=== PATIENT | female | born 1970 | race Caucasian/White ===

== ENCOUNTER 2021-01-17 15:14 | Outpatient (CLI) | payer BC, SELFPAY ==
--- NOTE | 2021-01-17 15:00 | DI.RAD_ITS ---
Exam(s) XR KNEE RT 4V AP,LAT,KEVEN,PAT EXAM: XR KNEE RT 4V AP,LAT,KEVEN,PAT CLINICAL HISTORY: RIGHT KNEE PAIN. TECHNIQUE: 2D digital imaging was performed. COMPARISON: No exams were available for comparison FINDINGS: No evidence of acute fracture nor obvious joint effusion. There is evidence of prior ACL surgery. M ild degenerative changes noted in the medial compartment. No osteochondral defects evident. Bone de nsity normal. No significant osseous lesions. IMPRESSION: DATA REPOSITORY: RADIATION DOSE DELIVERED:
== END 2021-01-17 15:15 | disposition home or self-care (01) ==
LOC: DIORS 15:15
PROVIDERS: Visit Provider Student in an Organized Health Care Education/Training Program
DX: M25.561 Pain in right knee (principal); M17.11 Unilateral primary osteoarthritis, right knee; S89.81XA Other specified injuries of right lower leg, initial encounter; X58.XXXA Exposure to other specified factors, initial encounter; Z98.890 Other specified postprocedural states
CPT/HCPCS: 73564

== ENCOUNTER 2021-02-07 01:00 | Outpatient (CLI) | payer BC, SELFPAY ==
--- NOTE | 2021-02-07 08:13 | DI.MRI_ITS ---
Exam(s) MR LOWER JOINT RT WO EXAM: MR LOWER JOINT RT WO CLINICAL HISTORY: RIGHT KNEE PAIN,? MPFL RUTPURE, MALTRACKING RT PATELLA, M22.8X1 TECHNIQUE: Multiplanar multisequence MRI of the knee was performed. COMPARISON: CR XR KNEE RT 4V AP,LAT,KEVEN,PAT from 01/17/2021 CR XR KNEE RT 4V AP,LAT,KEVEN,PAT from 01/17/2021 FINDINGS: EFFUSION: Minimal amount of increased joint fluid. There is no prominent joint effusion. There is n o Tarango cyst in the popliteal fossa. MARROW:There is no evidence of fracture, bone contusion, nor osteochondral defects.. There are no si gnificant osseous lesions. PATELLOFEMORAL COMPARTMENT: The quadriceps tendon is intact. The patellar ligament is intact. There is no significant thinning of the retropatellar cartilage. No evidence of fissure nor signific ant chondral defect. No osteochondral defect at this level.There is no intraosseous signal to sugges t recent patellar dislocation. There are no patellar retinacular tears. CRUCIATE LIGAMENTS: There has been previous ACL surgery. Mild irregularity of the ACL graft is noted but there does not appear to be a high-grade graft tear.The posterior cruciate ligament is intact. MEDIAL COMPARTMENT/MEDIAL MENISCUS: There are no tears of the medial meniscus evident.. There are no chondral defects, osteochondral defects, nor prominent subarticular marrow edema. Small osteophytes are noted on the inner aspect of the medial femoral condyle. MEDIAL COLLATERAL LIGAMENT: Mild sprain signal. Otherwise intact. LATERAL COMPARTMENT/LATERAL MENISCUS: There is no evidence of lateral meniscal tear.No obvious chondr al defects although there is some mild subarticular edema on the inner aspect of the lateral femoral condyle adjacent to the intercondylar notch.No osteophytes seen in the lateral femoral condyle. ILIOTIBIAL BAND: Intact LATERAL COLLATERAL LIGAMENT COMPLEX: The fibular collateral ligament is intact. The biceps femoris t endon is intact.Popliteus muscle and tendon are intact. IMPRESSION: 1. There is evidence of previous ACL surgery. ACL graft appears slightly irregular but there is no e vidence of obvious high-grade tear of the graft. Probable partial tearing. 2. PCL is intact. LCL complex is intact and there is no prominent tear of the MCL appear 3. There are no obvious meniscal tears. 4. No prominent joint effusion. There is no Tarango cyst in the popliteal fossa. DATA REPOSITORY:
== END 2021-02-07 01:20 ==
PROVIDERS: Visit Provider Student in an Organized Health Care Education/Training Program
DX: M25.561 Pain in right knee (principal)
CPT/HCPCS: 73721

== ENCOUNTER 2021-06-10 03:00 | Outpatient (CLI) | payer BC, SELFPAY ==
[2021-06-10 13:33] LABS: Abs Immature Grans 0.01 10^3/uL (0.0-0.06); Absolute Basophil Count 0.07 10^3/uL (0.0-0.2); Absolute Eosinophil Count 0.25 10^3/uL (0.0-0.7); Absolute Monocyte Count 0.52 10^3/uL (0.1-0.8); Absolute Neutrophil Count 3.95 10^3/uL (1.2-6.7); Basophils % 1.1; HCT 37.4 % (36.0-46.0); HGB 11.4 g/dL (11.2-15.7); Immature Grans % 0.2; Lymphocytes % 23.8; MCH 25.4 pg (27.0-33.0); MCHC 30.5 % (32.0-36.0); MCV 83.5 fL (80-95); MPV 12.6 fL (8.0-11.0); Monocytes % 8.3; Neutrophils % 62.6; Nucleated RBC 0 %; Platelet Count 222 10^3/uL (130-400); RBC 4.48 10^6/uL (3.93-5.22); RDW 15.6 % (11.7-14.6); RDW-SD 48.2 fL
[2021-06-10 14:55] LABS: Iron 52 ug/dL (50-170); Total Iron Binding Capacity 380 ug/dL (250-450)
[2021-06-10 15:01] LABS: Ferritin 8 ng/mL (8-252)
== END 2021-06-10 03:01 | disposition home or self-care (01) ==
PROVIDERS: Visit Provider Internal Medicine Hematology & Oncology
DX: D50.9 Iron deficiency anemia, unspecified (principal); N63.10 Unspecified lump in the right breast, unspecified quadrant
CPT/HCPCS: 36415; 82728; 83540; 83550; 85025

== ENCOUNTER 2021-07-16 16:20 | Outpatient (REF) | payer BC, SELFPAY ==
[2021-07-18 11:59] LABS: COVID-19 RT-PCR UVMMC Result Negative (Negative)
== END 2021-07-16 16:21 | disposition home or self-care (01) ==
LOC: LBN 16:20
PROVIDERS: Visit Provider Physician Assistant Medical
DX: J45.990 Exercise induced bronchospasm (principal); Z20.822 Contact with and (suspected) exposure to COVID-19
CPT/HCPCS: U0003

== ENCOUNTER 2022-07-25 13:15 | Outpatient (CLI) | payer BC, SELFPAY ==
[2022-07-25 13:29] LABS: Iron 50 ug/dL (50-170); Total Iron Binding Capacity 294 ug/dL (250-450); Transferrin Sat 17 % (15-50)
[2022-07-25 13:42] LABS: Ferritin 40 ng/mL (8-252)
== END 2022-07-25 13:16 | disposition home or self-care (01) ==
LOC: LBO 13:16
PROVIDERS: Visit Provider Internal Medicine Hematology & Oncology
DX: D50.9 Iron deficiency anemia, unspecified (principal); N63.10 Unspecified lump in the right breast, unspecified quadrant
CPT/HCPCS: 36415; 82728; 83540; 83550

== ENCOUNTER 2022-11-14 17:24 | Outpatient (REF) | payer BC, SELFPAY ==
[2022-11-14 19:06] LABS: Abs Immature Grans 0.02 10^3/uL (0.0-0.06); Absolute Basophil Count 0.05 10^3/uL (0.0-0.2); Absolute Eosinophil Count 0.26 10^3/uL (0.0-0.7); Absolute Lymphocyte Count 1.75 10^3/uL (1.2-3.4); Absolute Monocyte Count 0.49 10^3/uL (0.1-0.8); Absolute Neutrophil Count 4.14 10^3/uL (1.2-6.7); Basophils % 0.7; Eosinophils % 3.9; HCT 34.7 % (36.0-46.0); HGB 10.9 g/dL (11.2-15.7); Immature Grans % 0.3; Lymphocytes % 26.1; MCH 26.2 pg (27.0-33.0); MCHC 31.4 % (32.0-36.0); MCV 83 fL (80-95); MPV 12.6 fL (8.0-11.0); Monocytes % 7.3; Neutrophils % 61.7; Platelet Count 238 10^3/uL (130-400); RBC 4.16 10^6/uL (3.93-5.22); RDW-SD 39.8 fL; WBC 6.71 10^3/uL (4.4-10.8)
[2022-11-14 19:40] LABS: Hemoglobin A1C 5.6 % (<5.7)
[2022-11-14 19:44] LABS: ALT 23 U/L (14-59); AST 23 U/L (15-37); Albumin 3.8 g/dL (3.4-5.0); Alkaline Phosphatase 88 U/L (46-116); Anion Gap 9.7 mmol/L (3-11); BUN 13 mg/dL (7-18); Bilirubin, Total 0.6 mg/dL (0.2-1.0); CO2 26.3 mmol/L (21.0-32.0); CREATININE 0.8 mg/dL (0.55-1.02); Calcium 8.9 mg/dL (8.5-10.1); Calculated LDL 169 mg/dL (<100); Chloride 102 mmol/L (98-107); Cholesterol 258 mg/dL (<200); Estimated GFR 89.15 (mL/min/1.73m2); Glucose 112 mg/dL (74-106); HDL Cholesterol 71 mg/dL (40-60); Potassium 3.6 mmol/L (3.5-5.1); Sodium 138 mmol/L (136-145); TSH (W/Ref FT4) 1.39 uIU/mL (0.36-3.74); Total Protein 7.4 g/dL (6.4-8.2); Triglyceride 93 mg/dL (<150)
[2022-11-14 19:46] LABS: Iron 23 ug/dL (50-170); Total Iron Binding Capacity 336 ug/dL (250-450); Transferrin Sat 7 % (15-50)
[2022-11-14 19:58] LABS: Vitamin D 25 Total 20.9 ng/mL (30-100)
== END 2022-11-14 17:25 | disposition home or self-care (01) ==
LOC: NCHCN 17:24
PROVIDERS: PCP Nurse Practitioner Family; Visit Provider Nurse Practitioner Family
DX: R63.5 Abnormal weight gain (principal)
CPT/HCPCS: 80053; 80061; 82306; 83036; 83540; 83550; 84443; 85025

== ENCOUNTER 2023-02-27 18:54 | Outpatient (REF) | payer BC, SELFPAY ==
[2023-02-27 16:13] LABS: Iron 61 ug/dL (50-170)
[2023-02-27 16:16] LABS: Abs Immature Grans 0.01 10^3/uL (0.0-0.06); Absolute Basophil Count 0.07 10^3/uL (0.0-0.2); Absolute Eosinophil Count 0.22 10^3/uL (0.0-0.7); Absolute Lymphocyte Count 1.38 10^3/uL (1.2-3.4); Absolute Monocyte Count 0.46 10^3/uL (0.1-0.8); Absolute Neutrophil Count 3.06 10^3/uL (1.2-6.7); Basophils % 1.3; Eosinophils % 4.2; HCT 35.7 % (36.0-46.0); HGB 11.3 g/dL (11.2-15.7); Immature Grans % 0.2; Lymphocytes % 26.5; MCH 25.1 pg (27.0-33.0); MCHC 31.7 % (32.0-36.0); MCV 79 fL (80-95); MPV 13.3 fL (8.0-11.0); Monocytes % 8.8; Platelet Count 196 10^3/uL (130-400); RBC 4.51 10^6/uL (3.93-5.22); RDW 16.5 % (11.7-14.6); RDW-SD 46.5 fL
[2023-02-27 16:33] LABS: Anion Gap 9.8 mmol/L (3-11); BUN 12 mg/dL (7-18); CO2 25.2 mmol/L (21.0-32.0); CREATININE 0.8 mg/dL (0.55-1.02); Calcium 9.1 mg/dL (8.5-10.1); Calculated LDL 160 mg/dL (<100); Chloride 107 mmol/L (98-107); Cholesterol 244 mg/dL (<200); Estimated GFR 89.15 (mL/min/1.73m2); Glucose 102 mg/dL (74-106); HDL Cholesterol 60 mg/dL (40-60); Potassium 4.1 mmol/L (3.5-5.1); Sodium 142 mmol/L (136-145); Triglyceride 124 mg/dL (<150)
[2023-02-27 16:36] LABS: Vitamin D 25 Total 39.5 ng/mL (30-100)
[2023-02-27 16:38] LABS: RBC Morphology Normal
[2023-02-27 16:39] LABS: Diff Comment PLT Morph Reviewed
[2023-02-27 17:14] LABS: Hemoglobin A1C 5.7 % (<5.7)
== END 2023-02-27 18:55 | disposition home or self-care (01) ==
LOC: NCHCN 18:54
PROVIDERS: PCP Nurse Practitioner Family; Visit Provider Physician Assistant
DX: D50.9 Iron deficiency anemia, unspecified (principal); E55.9 Vitamin D deficiency, unspecified; E78.5 Hyperlipidemia, unspecified; R73.9 Hyperglycemia, unspecified
CPT/HCPCS: 80048; 80061; 82306; 83036; 83540; 85025

== ENCOUNTER → 2023-06-20 04:29 | Outpatient (CLI) | payer BC, SELFPAY ==
--- NOTE | 2023-06-20 | DI.MAMMO_ITS ---
Exam(s) MAMMO SCREENING EXAM: MAMMO SCREENING CLINICAL HISTORY: Z12.31 Encounterfor screening mammogram for malignant neoplasm of breast TECHNIQUE: Mammograms were interpreted according to the usual protocol including computer analysis w [employer] CAD system, tomosynthesis and C-view imaging. COMPARISON: 2017 and 2019 mammogram and ultrasound from [facility] in [facility] FINDINGS: The breasts are composed of heterogeneously dense fibroglandular densities, Breast Density category C . No suspicious masses or suspicious microcalcifications are seen. No skin thickening or abnormal axillary lymph nodes are seen. Previously noted bilateral breast cysts are no longer visible. IMPRESSION: BI-RADS Category 1, Negative mammogram. Yearly screening mammography is recommended. Breast Density Category C, heterogeneously Dense. The mammogram demonstrates the patient's breast tissue is dense. Dense breast tissue is very common a nd is not abnormal but dense breast tissue can make it harder to find cancer on a mammogram. Also, de nse breast tissue may increase breast cancer risk. This information about the result of the mammogram report was provided to the patient to raise their awareness. Use this report when you speak with the patient about their risks for breast cancer, which includes their family history. At that time, you may recommend additional screening tests (Ultrasound or MRI) as they might be useful based on their r isk. A negative radiographic report should not delay biopsy if a dominant or clinically suspicious mass is present. Up to ten percent of cancers are not identified on mammography. A negative report may reinforce clinical impression. Adenosis and dense breasts may obscure an underlying neoplasm. False positive reports average 6 to 10%.
== END ==
PROVIDERS: PCP Nurse Practitioner Family; Visit Provider Physician Assistant
DX: Z12.31 Encounter for screening mammogram for malignant neoplasm of breast (principal); R92.30 Dense breasts, unspecified
CPT/HCPCS: 77063; 77067

== ENCOUNTER 2023-07-19 15:38 | Outpatient (REF) | payer BC, SELFPAY ==
[2023-07-19 15:10] LABS: Abs Immature Grans 0.03 10^3/uL (0.0-0.06); Absolute Basophil Count 0.07 10^3/uL (0.0-0.2); Absolute Eosinophil Count 0.13 10^3/uL (0.0-0.7); Absolute Lymphocyte Count 1.72 10^3/uL (1.2-3.4); Absolute Neutrophil Count 6.11 10^3/uL (1.2-6.7); Basophils % 0.8 %; Eosinophils % 1.5 %; HCT 32.6 % (36.0-46.0); HGB 9.8 g/dL (11.2-15.7); Immature Grans % 0.4 %; Lymphocytes % 20.1 %; MCH 23.8 pg (27.0-33.0); MCHC 30.1 % (32.0-36.0); MCV 79 fL (80-95); MPV 12.6 fL (8.0-11.0); Monocytes % 5.8 %; Neutrophils % 71.4 %; Platelet Count 281 10^3/uL (130-400); RBC 4.12 10^6/uL (3.93-5.22); RDW 14.9 % (11.7-14.6); RDW-SD 42.9 fL; WBC 8.56 10^3/uL (4.4-10.8)
[2023-07-19 15:30] LABS: Iron 15 ug/dL (50-170); Total Iron Binding Capacity 393 ug/dL (250-450); Transferrin Sat 4 % (15-50)
[2023-07-19 15:31] LABS: Hemoglobin A1C 5.9 % (<5.7)
[2023-07-19 15:54] LABS: Vitamin D 25 Total 25.5 ng/mL (30-100)
[2023-07-19 15:55] LABS: ALT 21 U/L (14-59); AST 21 U/L (15-37); Albumin 3.7 g/dL (3.4-5.0); Alkaline Phosphatase 103 U/L (46-116); Anion Gap 9.4 mmol/L (3-11); BUN 10 mg/dL (7-18); Bilirubin, Total 0.6 mg/dL (0.2-1.0); CO2 27.6 mmol/L (21.0-32.0); CREATININE 0.9 mg/dL (0.55-1.02); Calcium 8.9 mg/dL (8.5-10.1); Chloride 106 mmol/L (98-107); FREE T4 0.86 ng/dL (0.76-1.46); Ferritin 7 ng/mL (8-252); Folate 9.7 ng/mL (8.6-20.0); Glucose 124 mg/dL (74-106); Potassium 3.9 mmol/L (3.5-5.1); Sodium 143 mmol/L (136-145); TSH 1.95 uIU/Ml (0.36-3.74); Total Protein 7.7 g/dL (6.4-8.2); Vitamin B12 213 pg/mL (193-986)
== END 2023-07-19 15:39 | disposition home or self-care (01) ==
LOC: NCHCN 15:38
PROVIDERS: PCP Nurse Practitioner Family; Visit Provider Nurse Practitioner Family
DX: R63.5 Abnormal weight gain (principal)
CPT/HCPCS: 80053; 82306; 82607; 82728; 82746; 83036; 83540; 83550; 84439; 84443; 85025

== ENCOUNTER 2023-08-10 10:13 | Emergency (ER) | payer BC, SELFPAY ==
--- NOTE | 2023-08-10 10:15 | RT.EKG_ITS ---
APPROVED REPORT Exam: Resting ECG Reason for Exam: feelinf faint Patient Location: E HR:69 bpm ECG Measurements Heart Rate 69 AXIS IL 150 P 18 QRSd 79 QRS 77 QT 379 T 68 QTc 408 Conclusion Sinus rhythm.. 69 no stemi
[2023-08-10 10:23] VITALS: BP 112/75; PULSE 76; RESP 16; TEMP 37; O2SAT 98
--- NOTE | 2023-08-10 10:45 | DI.CT_ITS ---
Exam(s) CT HEAD WO EXAM: CT HEAD WO CLINICAL HISTORY: dizzy. TECHNIQUE: Imaging Protocol: Axial computed tomography images with coronal and sagittal reformatted images were created and reviewed COMPARISON: No exams were available for comparison FINDINGS: Ventricles and Extra axial spaces: Normal in size and morphology for the patient's age. Hemorrhage: None. Cerebral parenchyma: No evidence of acute infarct or mass. Midline shift: None. Brainstem/Cerebellum: Normal. Calvarium: Normal. Visualized Paranasal sinuses:Mucous retention cysts maxillary sinuses. Mastoids: Clear. Soft Tissues: Unremarkable. ORBITS: Unremarkable. PITUITARY: Not enlarged. IMPRESSION: No acute intracranial process. RADIATION DOSE DELIVERED: 734.63mGy.cm Total DLP DATA REPOSITORY: All CT scans at this facility are submitted to the National Radiology Data Registry (NRDR) Dose Index Registry (DIR) with the [employer] (A[employer]). RADIATION OPTIMIZATION: All CT scans at this facility use at least one of these dose optimization te chniques: automated exposure control; mA and/or kV adjustment per patient size (includes targeted exa ms where dose is matched to clinical indication); or iterative reconstruction.
[2023-08-10] MEDS: Meclizine 25 MG TAB PO (11:11)
[2023-08-10 11:18] LABS: Abs Immature Grans 0.02 10^3/uL (0.0-0.06); Absolute Basophil Count 0.05 10^3/uL (0.0-0.2); Absolute Lymphocyte Count 1.39 10^3/uL (1.2-3.4); Absolute Monocyte Count 0.41 10^3/uL (0.1-0.8); Absolute Neutrophil Count 2.68 10^3/uL (1.2-6.7); Basophils % 1.1 %; Eosinophils % 4.2 %; HCT 35.6 % (36.0-46.0); HGB 10.7 g/dL (11.2-15.7); Immature Grans % 0.4 %; Lymphocytes % 29.3 %; MCH 23.6 pg (27.0-33.0); MCHC 30.1 % (32.0-36.0); MCV 78 fL (80-95); MPV 12.5 fL (8.0-11.0); Monocytes % 8.6 %; Neutrophils % 56.4 %; Platelet Count 282 10^3/uL (130-400); RBC 4.54 10^6/uL (3.93-5.22); RDW 15.9 % (11.7-14.6); RDW-SD 45.5 fL; WBC 4.75 10^3/uL (4.4-10.8)
[2023-08-10] MEDS: Normal Saline 1,000 ML 1000 ML IV (11:28)
[2023-08-10 11:31] VITALS: BP 131/66; PULSE 65; RESP 16; O2SAT 100
[2023-08-10 11:31] LABS: Bilirubin Negative (Negative); Blood Trace-intact (Negative); Clarity Clear (Clear); Glucose Negative (Negative); Ketones Negative (Negative); Leukocyte Esterase Negative (Negative); Nitrite Negative (Negative); Specific Gravity 1.015 (1.005-1.025); Urobilinogen 0.2 mg/dL (Up to 0.2); pH 6.5 (5-8)
--- NOTE | 2023-08-10 11:33 | ED.GENADUL_ITS ---
Discharge Plan Disposition Patient Disposition: Home Condition: Stable Discharge Details Clinical Impression: Dizziness Primary Care Provider: Unknown,Unknown ED Provider: Bebo Rizzo Home Meds and New Rx's Prescriptions: No Action No Known Home Meds Discharge Instructions Instructions: Dizziness (ED) Additional Instructions: Lab work and imaging today is unremarkable for significant emergent process. Your blood counts are improved from prior. Please continue to drink lots of fluids and stay hydrated. Return with worsening symptoms or follow-up with your PCP. Discharge Data Discharge Date/Time-TO BE ENTERED AT DEPARTURE: 08/10/23 13:22 HPI General Date/Time Provider Initiated Documentation: 08/10/23 10:36 . Limitations to Documentation: no limitations . Information obtained by: patient and family . HPI Narrative: 52-year-old female with out significant past medical history presents for evaluation of dizziness and lightheadedness. 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 She reports that she slept in and was having a lazy morning. She reports feeling more tired than usual. She reports having some nausea with the new medication. She reports that she just started feeling very dizzy and unsteady. She denies any chest pain or headache. She reports that the dizziness is worse when she is up walking around. She reports eating breakfast this morning. Denies any drugs or alcohol use. She states that this is never happened before. She has never had dizzy symptoms before. She denies any headache associated with her dizziness. Related Data Home Medications Medication Instructions Recorded Confirmed Unknown [No Known Home Meds] 01/17/21 08/10/23 Allergies Allergy/AdvReac Type Severity Reaction Status Date / Time No Known Allergies Allergy Unverified 01/17/21 15:10 General Stated Complaint: Dizzy/Sync ANA LILIA: 3 Exam Narrative Exam Narrative: Review of Systems: All systems reviewed & are unremarkable except as noted in HPI and below Well-developed, no acute distress NCAT PERRL, normal conjunctiva, no nystagmus RRR, no murmur Unlabored respiratory effort, clear bilaterally Nondistended abdomen, nontender Extremities w/o deformity, no cyanosis, no edema No rashes or lesions. no focal neurologic deficits Good strength and tone throughout, sensation intact, no past-pointing, normal [id number], negative Romberg, no appreciable ataxia Appropriate mood and affect Course Vital Signs Vital signs: Vital Signs Temperature 37.0 C 08/10/23 10:23 Pulse 76 08/10/23 10:23 Respiratory Rate 16 08/10/23 10:23 Blood Pressure 112/75 08/10/23 10:23 Pulse Oximetry 98 08/10/23 10:23 Temperature 37.0 C 08/10/23 10:23 Temperature Source Tympanic 08/10/23 10:23 Pulse 65 08/10/23 11:31 Respiratory Rate 16 08/10/23 11:31 Respiratory Effort Normal 08/10/23 11:31 Respiratory Depth Normal 08/10/23 11:31 Respiratory Pattern Normal 08/10/23 11:31 Blood Pressure 131/66 08/10/23 11:31 Blood Pressure Position Sitting 08/10/23 10:23 Pulse Oximetry 100 08/10/23 11:31 Oxygen Delivery Method Room Air 08/10/23 10:23 Oxygen Flow Rate 0 08/10/23 10:23 Pain Level 0 08/10/23 11:31 Lab/Test Results Lab/Test Results: Laboratory Tests Range/Units 08/10/23 08/10/23 11:10 11:12 WBC (4.4-10.8) 10^3/uL 4.75 RBC (3.93-5.22) 10^6/uL 4.54 Hgb (11.2-15.7) g/dL 10.7 L Hct (36.0-46.0) % 35.6 L MCV (80-95) fL 78 L MCH (27.0-33.0) pg 23.6 L MCHC (32.0-36.0) % 30.1 L RDW (11.7-14.6) % 15.9 H Plt Count (130-400) 10^3/uL 282 MPV (8.0-11.0) fL 12.5 H Immature Gran % % 0.4 Neutrophils % % 56.4 Lymphocytes % % 29.3 Monocytes % % 8.6 Eosinophils % % 4.2 Basophils % % 1.1 Nucleated RBC % (0.0-0.3) % 0.0 Absolute Neutrophils (1.2-6.7) 10^3/uL 2.68 Absolute Lymphocytes (1.2-3.4) 10^3/uL 1.39 Absolute Monocytes (0.1-0.8) 10^3/uL 0.41 Absolute Eosinophils (0.0-0.7) 10^3/uL 0.20 Absolute Basophils (0.0-0.2) 10^3/uL 0.05 Urine Color (Yellow) Yellow Urine Clarity (Clear) Clear Urine pH (5-8) 6.5 Ur Specific [place] (1.005-1.025) 1.015 Urine Protein (Neg-Trace) mg/dL Negative Urine Ketones (Negative) mg/dL Negative Urine Blood (Negative) Trace-intact H Urine Nitrite (Negative) Negative Urine Bilirubin (Negative) Negative Urine Urobilinogen (Up to 0.2) mg/dL 0.2 Ur Leukocyte Esterase (Negative) Negative Urine Glucose (Negative) mg/dL Negative Medical Decision Making Emergent evaluation of dizziness. Initial differential includes dehydration, electrolyte derangement, vertigo, less likely intracranial process. Lab work reviewed. The patient does have mild anemia, some i improvement from prior. No electrolyte derangement. No urinary tract infection. Head CT was obtained to evaluate for concerning new dizziness. This is unremarkable for stroke or mass. She received IV fluids and meclizine which resulted in the resolution of her symptoms. I suspect that she perhaps has some mild dehydration causing the symptoms or some mild vertigo. At this time no additional emergent workup is indicated. Plan for discharge home. Return precautions advised. Medical Records Medical records reviewed: Yes I reviewed the patient's medical records. Lab Data Lab results reviewed: Yes I reviewed the patient's lab results. Quality:SDOH Health Related Social Needs: No Data to Display PFSH All Active Problems (Updated 08/10/23 @ 12:37 by Bebo Rizzo MD) Dizziness (Acute) Maltracking of right patella (Acute) Medical History Bleeding external hemorrhoids (11/13/12) pt instructed to contact pcp for further evaluation Anemia during pregnancies Gastrointestinal symptom colonoscopy in 2010 ? gluten concern ACL repair in 2000 and 2012 Surgical History Repair, ACL 2000, 2012 Social History Smoking/Tobacco Use Status: Never Smoking risk assessment performed?: Yes Alcohol Intake: former Substance use type: does not use
[2023-08-10 11:44] LABS: ALT 22 U/L (14-59); AST 16 U/L (15-37); Albumin 3.9 g/dL (3.4-5.0); Alkaline Phosphatase 116 U/L (46-116); BUN 11 mg/dL (7-18); Bilirubin, Total 0.7 mg/dL (0.2-1.0); CREATININE 0.9 mg/dL (0.55-1.02); Calcium 8.9 mg/dL (8.5-10.1); Chloride 105 mmol/L (98-107); Glucose 87 mg/dL (74-106); Magnesium 2.1 mg/dL (1.8-2.4); Potassium 4.2 mmol/L (3.5-5.1); Sodium 142 mmol/L (136-145); TSH 2.36 uIU/Ml (0.36-3.74); Total Protein 8.2 g/dL (6.4-8.2); Troponin I < 50 ng/L (< or =60)
[2023-08-10 11:51] LABS: Bacteria Rare HPF (Negative); Epithelial Cells Rare HPF (Negative); RBC 0-2 HPF (0-2); WBC 0-2 HPF (0-5)
[2023-08-10 11:52] LABS: C & S Indicated? No; Casts Negative LPF (Negative); Crystals Rare Calcium Oxalate HPF (Negative); Mucus Negative (Negative)
[2023-08-10 13:08] VITALS: BP 132/74; PULSE 78; RESP 16; TEMP 36.7; O2SAT 98
== END 2023-08-10 13:22 | disposition home or self-care (01) ==
PROVIDERS: Emergency Provider Emergency Medicine
DX: R42 Dizziness and giddiness (principal); R11.0 Nausea; R53.83 Other fatigue; D64.9 Anemia, unspecified
CPT/HCPCS: 80053; 93005; 99285; 70450; 81003; 81015; 83735; 84443; 84484; 85025; 93010; 99284

== ENCOUNTER 2024-01-28 18:20 | Emergency (ER) | payer BC, SELFPAY ==
[2024-01-28 18:23] VITALS: BP 141/82; PULSE 78; RESP 18; TEMP 36.7; O2SAT 99
[2024-01-28 18:43] VITALS: BP 142/82; PULSE 78; RESP 18; TEMP 36.7; O2SAT 99
[2024-01-28] MEDS: Ketorolac 30 MG/ML VIAL 10 MG IVP (19:05)
[2024-01-28] MEDS: diphenhydrAMINE 50 MG/ML VIAL 25 MG IVP (19:06)
[2024-01-28] MEDS: MAGNESIUM SULFATE 2 GM/50 ML BAG IVINF (19:07)
[2024-01-28] MEDS: Prochlorperazine 10 MG/2 ML VIAL 5 MG IVP (19:07)
[2024-01-28 21:39] VITALS: BP 102/53; PULSE 73; RESP 18; TEMP 36.5; O2SAT 95
--- NOTE | 2024-01-28 21:42 | ED.GENADUL_ITS ---
Discharge Plan Disposition Patient Disposition: Home Condition: Stable Discharge Details Clinical Impression: Headache Primary Care Provider: Ebony Dalal ED Provider: Bebo Rizzo Home Meds and New Rx's Prescriptions: No Action No Known Home Meds Discharge Instructions Instructions: Headache, Adult ED Additional Instructions: Glad that your headache symptoms have improved. Continue to drink increased amounts of water over the next few days. You can take 1000 mg of Tylenol every 4-6 hours or 600 mg of Motrin every 6 hours. Do not take these medications more than 3 times per week. If you notice that you have persistent headache or are needing more medications, please follow-up with your PCP. HPI General Date/Time Provider Initiated Documentation: 01/28/24 18:49 . Limitations to Documentation: no limitations . Information obtained by: patient . HPI Narrative: 53-year-old female without significant past medical history presents for evaluation of headache. The patient reports that the headache started 2 days ago after visiting a spa. She states that she did not have any massage treatment but did steam and dry sauna. She states that the headache started on the way home in the car. Not acute onset, not severe. Took some medication and felt better that evening and then the next day did not feel terrible. This morning woke up with more severe headache nausea but no vomiting. Sensitivity to light and sound. The patient denies any visual change, weakness or speech change. Related Data Home Medications ?Medication ?Instructions ?Recorded ?Confirmed Unknown [No Known Home Meds] 01/17/21 01/28/24 Allergies Allergy/AdvReac Type Severity Reaction Status Date / Time No Known Allergies Allergy Unverified 01/28/24 18:26 General Stated Complaint: Headache ANA LILIA: 2 Exam Narrative Exam Narrative: Review of Systems: All systems reviewed & are unremarkable except as noted in HPI and below Well-developed, no acute distress NCAT PERRL, normal conjunctiva no nystagmus Full range of motion of the neck without any stiffness or meningeal signs RRR Unlabored respiratory effort clear bilaterally Nondistended abdomen soft nontender no focal neurologic deficits good strength throughout Appropriate mood and affect Course Vital Signs Vital signs: Vital Signs Temperature 36.7 C 01/28/24 18:23 Pulse 78 01/28/24 18:23 Respiratory Rate 18 01/28/24 18:23 Blood Pressure 141/82 H 01/28/24 18:23 Pulse Oximetry 99 01/28/24 18:23 Temperature 36.5 C 01/28/24 21:39 Temperature Source Oral 01/28/24 18:43 Pulse 73 01/28/24 21:39 Respiratory Rate 18 01/28/24 21:39 Respiratory Effort Normal, Non-Labored 01/28/24 18:36 Blood Pressure 102/53 L 01/28/24 21:39 Blood Pressure Position Sitting 01/28/24 18:43 Pulse Oximetry 95 01/28/24 21:39 Oxygen Delivery Method Room Air 01/28/24 18:43 Oxygen Flow Rate 0 01/28/24 18:23 Pain Level 0 01/28/24 21:39 Medical Decision Making Emergent evaluation of headache. Headache was not acute onset, associated with fever or neurologic deficit. I have a low suspicion for an acute intracranial process or infectious etiology causing her symptoms. She has a normal neurologic exam at this time. She has not taken a significant amount of medication. Took 2 g of Tylenol yesterday and 1 dose of Motrin today. She states that after leaving the spot she did increase her water intake because she thought she might be dehydrated. No clinical signs of dehydration on exam. An IV was placed and medication was given to treat her headache. On reevaluation the patient reports complete resolution of her symptoms. Her neuroexam remained unremarkable and nonfocal. She was discharged in good condition. Strict return precautions advised. If headache persists or she develops ongoing issues she should follow-up with her PCP. Quality:SDOH Health Related Social Needs: No Data to Display PFSH All Active Problems Headache (Acute) Maltracking of right patella (Acute) Medical History Bleeding external hemorrhoids (11/13/12) pt instructed to contact pcp for further evaluation Anemia during pregnancies Gastrointestinal symptom colonoscopy in 2010 ? gluten concern ACL repair in 2000 and 2012 Surgical History Repair, ACL 2000, 2012 Social History Smoking/Tobacco Use Status: Never Smoking risk assessment performed?: Yes Alcohol Intake: former Substance use type: does not use Details: patient state she rarely drinks PAWSS Have you Been Recently Intoxicated or Drunk Within the Last 30 days?: No Have you Ever Experienced Previous Episodes of Alcohol Withdrawal?: No Have you ever Experienced Withdrawal Seizures?: No Have you ever Experienced Delirium Tremens(DT)s?: No Have you ever undergone Alcohol Rehabilitation Treatment (i.e, inpt ot outpatient treatment programs)?: No Have you ever Experienced Blackouts?: No Have you ever Combined Alcohol with other Downers within the last 90 days?: No Have you ever Combined Alcohol with any other Substance of Abuse during the last 90 days?: No Positive Blood Alcohol level on Presentation? [PCS.BAL]: No Evidence of Increased Autonomic Activity (i.e. HR>120, tremor, sweating, agitation, nausea)?: No Result: 0
== END 2024-01-28 21:41 | disposition home or self-care (01) ==
PROVIDERS: Emergency Provider Emergency Medicine; PCP Nurse Practitioner Family
DX: R51.9 Headache, unspecified (principal); R11.0 Nausea
CPT/HCPCS: 96365; 96366; 96375; 99284; 99283; J0780; J1200; J1885; J3475

== ENCOUNTER 2024-12-22 20:42 | Outpatient (REF) | payer OTHER, SELFPAY ==
[2024-12-22 18:06] LABS: HCT 30.1 % (36.0-46.0); HGB 8.5 g/dL (11.2-15.7); MCH 18.7 pg (27.0-33.0); MCHC 28.2 % (32.0-36.0); MCV 66 fL (80-95); Platelet Count 362 10^3/uL (130-400); RBC 4.55 10^6/uL (3.93-5.22); RDW 19.8 % (11.7-14.6); RDW-SD 45.2 fL; WBC 5.85 10^3/uL (4.4-10.8)
[2024-12-22 18:07] LABS: Iron 18 ug/dL (50-170); Total Iron Binding Capacity 458 ug/dL (250-450); Transferrin Sat 4 % (15-50)
[2024-12-22 18:21] LABS: ALT 21 U/L (14-59); AST 20 U/L (15-37); Albumin 3.9 g/dL (3.4-5.0); Alkaline Phosphatase 104 U/L (46-116); Anion Gap 10.7 mmol/L (3-11); BUN 6 mg/dL (7-18); Bilirubin, Total 0.6 mg/dL (0.2-1.0); CO2 26.3 mmol/L (21.0-32.0); Calculated LDL 128 mg/dL (<100); Chloride 104 mmol/L (98-107); Cholesterol 217 mg/dL (<200); Glucose 84 mg/dL (74-106); HDL Cholesterol 61 mg/dL (>or=50); Potassium 4.4 mmol/L (3.5-5.1); Sodium 141 mmol/L (136-145); Total Protein 7.8 g/dL (6.4-8.2); Triglyceride 141 mg/dL (<150)
[2024-12-22 18:35] LABS: Microcytosis 2+; Poikilocytes 2+
[2024-12-22 18:47] LABS: Calcium 8.8 mg/dL (8.5-10.1); Estimated GFR 103.35 (mL/min/1.73m2); Ferritin 4 ng/mL (8-252)
[2024-12-22 19:12] LABS: Hemoglobin A1C 5.8 % (<5.7)
[2024-12-24 09:39] LABS: Transferrin 343 mg/dL (201-352)
== END 2024-12-22 20:43 | disposition home or self-care (01) ==
LOC: NCHCN 20:42
PROVIDERS: PCP Nurse Practitioner Family
DX: Z01.89 Encounter for other specified special examinations (principal)
CPT/HCPCS: 80053; 80061; 82728; 83036; 83540; 83550; 84466; 85025

== ENCOUNTER 2024-12-29 11:53 | Emergency (ER) | payer OTHER, SELFPAY ==
[2024-12-29] VITALS (15 sets, daily range): BP systolic 112–138; BP diastolic 60–81; PULSE 56–67; RESP 9–22; TEMP 36.9; O2SAT 96–100
--- NOTE | 2024-12-29 12:00 | RT.EKG_ITS ---
APPROVED REPORT Exam: Resting ECG Reason for Exam: chest pain Patient Location: E HR:66 bpm ECG Measurements Heart Rate 66 AXIS [place] 161 P -26 QRSd 73 QRS 57 QT 404 T 66 QTc 422 Conclusion Sinus rhythm...normal P axis, V-rate 60- 99 ST elev, probable normal early repol pattern...ST elevation, age<55 No STEMI
[2024-12-29 13:50] LABS: Abs Immature Grans 0.02 10^3/uL (0.0-0.06); HCT 30.4 % (36.0-46.0); HGB 8.6 g/dL (11.2-15.7); Immature Grans % 0.3 %; MCH 18.6 pg (27.0-33.0); MCHC 28.3 % (32.0-36.0); MCV 66 fL (80-95); Platelet Count 345 10^3/uL (130-400); RBC 4.62 10^6/uL (3.93-5.22); RDW 20.9 % (11.7-14.6); RDW-SD 45.1 fL; WBC 6.91 10^3/uL (4.4-10.8)
[2024-12-29 14:10] LABS: INR 1.0 (0.9-1.1); Prothrombin Time 9.7 sec (9.1-11.1)
[2024-12-29 14:13] LABS: Anisocytosis 2+; Hypochromasia 1+; Microcytosis 2+; Polychromasia Present
--- NOTE | 2024-12-29 14:15 | DI.RAD_ITS ---
Exam(s) XR CHEST 2V PA LATERAL EXAM: XR CHEST 2V PA LATERAL CLINICAL HISTORY: Chest tigthness TECHNIQUE: 2D digital imaging was performed of the chest. Two images were obtained. PA and lateral views were obtained. COMPARISON: No exams were available for comparison FINDINGS: MEDIASTINUM: Normal. HEART: Normal. PULMONARY VASCULATURE: Normal. LUNGS: Clear. PLEURAL SPACE: No pleural effusion or pneumothorax. BONE:Within normal limits for the patient's age. OTHER FINDINGS:Normal. IMPRESSION: No acute pulmonary findings. DATA REPOSITORY: RADIATION DOSE DELIVERED:
[2024-12-29 14:16] LABS: PTT Activated 24.3 sec (20.6-30.2)
[2024-12-29 14:26] LABS: ALT 18 U/L (14-59); AST 26 U/L (15-37); Albumin 3.8 g/dL (3.4-5.0); Alkaline Phosphatase 107 U/L (46-116); Anion Gap 9.8 mmol/L (3-11); BUN 8 mg/dL (7-18); Bilirubin, Total 0.5 mg/dL (0.2-1.0); CO2 26.2 mmol/L (21.0-32.0); Calcium 8.8 mg/dL (8.5-10.1); Chloride 105 mmol/L (98-107); D-Dimer 445 ng/mlFEU (<500); Estimated GFR 103.35 (mL/min/1.73m2); Glucose 87 mg/dL (74-106); Potassium 4.3 mmol/L (3.5-5.1); Sodium 141 mmol/L (136-145); Total Protein 7.8 g/dL (6.4-8.2)
--- NOTE | 2024-12-29 14:58 | ED.GENADUL_ITS ---
Discharge Plan Disposition Patient Disposition: Home Discharge Details Clinical Impression: Atypical chest pain, Chronic anemia Primary Care Provider: Ebony Dalal ED Provider: Felix Baird Home Meds and New Rx's Prescriptions: No Action estrogen patch ferrous sulfate [Iron (ferrous sulfate)] PO Discharge Instructions Instructions: Anemia caused by low iron, Chest Pain (DC) Additional Instructions: Please follow-up with your primary care provider regarding your visit to the emergency department today. Be sure to discuss results of all test performed here today to include radiology, and laboratory testing as well as results for any pending cultures. Should your symptoms worsen, or if you develop new concerning symptoms, please return immediately emergency department for further evaluation. HPI General Date/Time Provider Initiated Documentation: 12/29/24 13:10 . HPI Narrative: MDM/Narrative: 54-year-old female on hormone replacement therapy no other significant cardiac risk, presents for atypical chest pain times several days. Will rule out ACS with EKG troponin x 2, PE with D-dimer plus or minus CT as well as other possible causes of acute chest pain such as pneumothorax, pneumonia with chest x-ray., Notable history of anemia, will screen for significant change from baseline. ED course: EKG shows no acute ischemic changes. Initial troponin is negative. Hemoglobin of 8.6 which is at the patient's baseline. Chest x-ray shows no acute findings. D-dimer negative. Patient remains hemodynamically stable with no vital sign abnormalities, will recommend follow-up with outpatient due to low heart score Clinical impression: Atypical chest pain. Chronic anemia Disposition: Home HPI: 54-year-old female who is on hormone replacement therapy, history of iron deficiency anemia, presents for evaluation of chest tightness which occurred this morning while patient was resting. She notes she maintains a sleep significant exercise regiment, and has not noted any worsening dyspnea, or chest pain with exertion recently. She denies any associated leg swelling, fever, chills, cough, shortness of breath, diaphoresis, nausea or vomiting. Denies any family history of early onset coronary artery disease heart attacks or sudden cardiac . Denies history of smoking, alcohol abuse, notes intermittent misa ble marijuana usage. ROS: Negative besides as mentioned above Exam: Gen: A&O NAD HEENT: NCAT, EOMI, not icteric. External ears normal. No rhinorrhea. Moist mucous membranes. Neck: Supple, full range of motion, no observable masses, No meningeal sign. Lungs: No Respiratory distress. CV: RRR, no edema. Abdomen: Soft, nondistended, No rebound tenderness. MSK: No joint swelling, no redness. Skin: No rashes, petechiae, lesions. Normal color per patient. Neuro: Normal Gait, Grossly intact. Psych: Appropriate for situation. Rhythm: NSR Rate: 66 [place]: Normal axis Intervals: Normal intervals Other findings: No acute ST segment or T wave changes to suggest acute ischemia. Labs: Laboratory Tests Range/Units 12/29/24 13:40 WBC (4.4-10.8) 10^3/uL 6.91 RBC (3.93-5.22) 10^6/uL 4.62 Hgb (11.2-15.7) g/dL 8.6 L Hct (36.0-46.0) % 30.4 L MCV (80-95) fL 66 L MCH (27.0-33.0) pg 18.6 L MCHC (32.0-36.0) % 28.3 L RDW (11.7-14.6) % 20.9 H Plt Count (130-400) 10^3/uL 345 MPV (8.0-11.0) fL Immature Gran % % 0.3 Neutrophils % % 66.9 Lymphocytes % % 21.9 Monocytes % % 6.5 Eosinophils % % 3.2 Basophils % % 1.2 Nucleated RBC % (0.0-0.3) % 0.0 Absolute Neutrophils (1.2-6.7) 10^3/uL 4.63 Absolute Lymphocytes (1.2-3.4) 10^3/uL 1.51 Absolute Monocytes (0.1-0.8) 10^3/uL 0.45 Absolute Eosinophils (0.0-0.7) 10^3/uL 0.22 Absolute Basophils (0.0-0.2) 10^3/uL 0.08 RBC Morphology See Below Polychromasia Present Hypochromasia 1+ Anisocytosis 2+ Microcytosis 2+ PT (9.1-11.1) sec 9.7 INR (0.9-1.1) 1.0 APTT (20.6-30.2) sec 24.3 D-Dimer (<500) ng/mlFEU 445 Sodium (136-145) mmol/L 141 Potassium (3.5-5.1) mmol/L 4.3 Chloride (98-107) mmol/L 105 Carbon Dioxide (21.0-32.0) mmol/L 26.2 Anion Gap (3-11) mmol/L 9.8 BUN (7-18) mg/dL 8 Creatinine (0.55-1.02) mg/dL 0.7 Est GFR (CKD-EPI 2020) (mL/min/1.73m2) 103.35 Glucose (74-106) mg/dL 87 Calcium (8.5-10.1) mg/dL 8.8 Total Bilirubin (0.2-1.0) mg/dL 0.5 AST (15-37) U/L 26 ALT (14-59) U/L 18 Alkaline Phosphatase (46-116) U/L 107 Total Protein (6.4-8.2) g/dL 7.8 Albumin (3.4-5.0) g/dL 3.8 Radiology: Chest x-ray 2 view AP and lateral: No acute findings as read by me Related Data Home Medications ?Medication ?Instructions ?Recorded ?Confirmed estrogen patch 12/29/24 ferrous sulfate PO 12/29/24 Allergies Allergy/AdvReac Type Severity Reaction Status Date / Time No Known Allergies Allergy Unverified 12/29/24 12:08 General Stated Complaint: Chest Pain ANA LILIA: 3 Course Vital Signs Vital signs: Vital Signs Temperature 36.9 C 12/29/24 12:02 Pulse 67 12/29/24 12:02 Respiratory Rate 18 12/29/24 12:02 Blood Pressure 138/81 12/29/24 12:02 Pulse Oximetry 98 12/29/24 12:02 Temperature 36.9 C 12/29/24 12:02 Pulse 65 12/29/24 13:50 Pulse 66 12/29/24 13:50 Respiratory Rate 13 12/29/24 13:50 Blood Pressure 129/63 12/29/24 13:46 Blood Pressure Mean 88 12/29/24 13:46 Pulse Oximetry 99 12/29/24 13:50 Oxygen Delivery Method Room Air 12/29/24 12:02 Oxygen Flow Rate 0 12/29/24 12:02 Pain Level 3 12/29/24 12:02 Lab/Test Results Lab/Test Results: Laboratory Tests Range/Units 12/29/24 13:40 WBC (4.4-10.8) 10^3/uL 6.91 RBC (3.93-5.22) 10^6/uL 4.62 Hgb (11.2-15.7) g/dL 8.6 L Hct (36.0-46.0) % 30.4 L MCV (80-95) fL 66 L MCH (27.0-33.0) pg 18.6 L MCHC (32.0-36.0) % 28.3 L RDW (11.7-14.6) % 20.9 H Plt Count (130-400) 10^3/uL 345 MPV (8.0-11.0) fL Immature Gran % % 0.3 Neutrophils % % 66.9 Lymphocytes % % 21.9 Monocytes % % 6.5 Eosinophils % % 3.2 Basophils % % 1.2 Nucleated RBC % (0.0-0.3) % 0.0 Absolute Neutrophils (1.2-6.7) 10^3/uL 4.63 Absolute Lymphocytes (1.2-3.4) 10^3/uL 1.51 Absolute Monocytes (0.1-0.8) 10^3/uL 0.45 Absolute Eosinophils (0.0-0.7) 10^3/uL 0.22 Absolute Basophils (0.0-0.2) 10^3/uL 0.08 RBC Morphology See Below Polychromasia Present Hypochromasia 1+ Anisocytosis 2+ Microcytosis 2+ PT (9.1-11.1) sec 9.7 INR (0.9-1.1) 1.0 APTT (20.6-30.2) sec 24.3 D-Dimer (<500) ng/mlFEU 445 Sodium (136-145) mmol/L 141 Potassium (3.5-5.1) mmol/L 4.3 Chloride (98-107) mmol/L 105 Carbon Dioxide (21.0-32.0) mmol/L 26.2 Anion Gap (3-11) mmol/L 9.8 BUN (7-18) mg/dL 8 Creatinine (0.55-1.02) mg/dL 0.7 Est GFR (CKD-EPI 2020) (mL/min/1.73m2) 103.35 Glucose (74-106) mg/dL 87 Calcium (8.5-10.1) mg/dL 8.8 Total Bilirubin (0.2-1.0) mg/dL 0.5 AST (15-37) U/L 26 ALT (14-59) U/L 18 Alkaline Phosphatase (46-116) U/L 107 Total Protein (6.4-8.2) g/dL 7.8 Albumin (3.4-5.0) g/dL 3.8 PFSH All Active Problems (Updated 12/29/24 @ 15:03 by Felix Baird MD) Chronic anemia (Acute) Atypical chest pain (Acute) Maltracking of right patella (Acute) Medical History Bleeding external hemorrhoids (11/13/12) pt instructed to contact pcp for further evaluation Anemia during pregnancies Gastrointestinal symptom colonoscopy in 2010 ? gluten concern ACL repair in 2000 and 2012 Surgical History Repair, ACL 2000, 2012 Social History Smoking/Tobacco Use Status: Never Smoking risk assessment performed?: Yes Alcohol Intake: former Substance use type: does not use Details: patient state she rarely drinks Housing: house Do you feel safe at home: Yes Do you feel safe in your relationship?: Yes
--- NOTE | 2025-01-03 09:15 | NUR.NOTE ---
Access chart to reconcile EKG orders with EKG's in [facility]. Duplicate order cancelled. Nursing Note:
== END 2024-12-29 15:30 | disposition home or self-care (01) ==
PROVIDERS: Emergency Provider General Practice; PCP Nurse Practitioner Family
DX: R07.89 Other chest pain (principal); D64.9 Anemia, unspecified
CPT/HCPCS: 99283; 99284; 36415; 80053; 93005; 71046; 85025; 85379; 85610; 85730; 93010